=== PATIENT | female | born 1960 | race American Indian/Alaskan Native ===

== ENCOUNTER 2019-01-05 13:56 | Emergency (ER) | payer OTHER ==
--- NOTE | 2019-01-05 14:32 | Emergency Department Report ---
Blank Doc - Documentation Documentation: 58 y old female presents to ED cc of fall earlier today at day care [facility] [employer] accidently slipped and fell on her butt, no loc cc of slight r knee pain, ambulatory without any problems [facility] Eval
[2019-01-05] MEDS ORDERED: TORADOL IM ONE (16:41)
--- NOTE | 2019-01-05 16:48 | Emergency Department Report ---
ED Fall HPI - General Chief Complaint: Fall Stated Complaint: FELL AT WORK Time Seen by Provider: 01/05/19 14:19 Source: patient Mode of arrival: Ambulatory - History of Present Illness Initial Comments: 58-year-old -[place] female presents to the emergency room after a ground-level fall at work sustaining injury to her back and neck and buttocks. 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 Patient denies any loss of consciousness but states that she landed hard. Patient reports a past medical history of asthma fibroid removal and tubal ligation. MD Complaint: fall -: This afternoon Fall From: standing Fall Witnessed: yes, by bystander Place Fall Occurred: work Loss of Consciousness: none Prolonged Down Time?: no Symptoms Prior to Fall: none Location: neck, back, buttocks Severity: severe Severity scale (0 -10): 9 Quality: aching, other (stiff) Context: tripped/slipped Associated Symptoms: neck pain - Related Data Previous Rx's Medication Instructions Recorded Last Taken Type ALBUTEROL Inhaler (OR & NICU) 2 puff IH QID PRN #1 inhalation 06/09/15 Unknown Rx [ProAir HFA Inhaler] Azithromycin [Zithromax Z-BRANDY] 250 mg PO DAILY #6 tab 06/09/15 Unknown Rx predniSONE [Deltasone] 20 mg PO BID 5 Days tab 06/09/15 Unknown Rx Baclofen 20 mg PO TID PRN #21 tablet 01/05/19 Unknown Rx Naproxen [Naprosyn TAB] 500 mg PO BID #20 tablet 01/05/19 Unknown Rx Allergies Allergy/AdvReac Type Severity Reaction Status Date / Time No Known Allergies Allergy Unverified 06/08/15 22:17 ED Review of Systems ROS: Stated complaint: FELL AT WORK Other details as noted in HPI Constitutional: denies: chills, fever Eyes: denies: eye pain, eye discharge, vision change ENT: denies: ear pain, throat pain Respiratory: denies: cough, shortness of breath, wheezing Cardiovascular: denies: chest pain, palpitations Endocrine: no symptoms reported Gastrointestinal: denies: abdominal pain, nausea, diarrhea Genitourinary: denies: urgency, dysuria, discharge Musculoskeletal: back pain Skin: denies: rash, lesions Neurological: denies: headache, weakness, paresthesias Psychiatric: denies: anxiety, depression Hematological/Lymphatic: denies: easy bleeding, easy bruising ED Past Medical Hx - Past Medical History Previous Medical History?: Yes Hx Asthma: Yes - Surgical History Past Surgical History?: Yes Additional Surgical History: fibroid removed, tubal. - Social History Smoking Status: Never Smoker Substance Use Type: Alcohol - Medications Home Medications: Home Medications Medication Instructions Recorded Confirmed Last Taken Type ALBUTEROL Inhaler (OR & NICU) 2 puff IH QID PRN #1 inhalation 06/09/15 Unknown Rx [ProAir HFA Inhaler] Azithromycin [Zithromax Z-BRANDY] 250 mg PO DAILY #6 tab 06/09/15 Unknown Rx predniSONE [Deltasone] 20 mg PO BID 5 Days tab 06/09/15 Unknown Rx Baclofen 20 mg PO TID PRN #21 tablet 01/05/19 Unknown Rx Naproxen [Naprosyn TAB] 500 mg PO BID #20 tablet 01/05/19 Unknown Rx ED Physical Exam - General Limitations: No Limitations General appearance: alert, in no apparent distress - Head Head exam: Present: atraumatic, normocephalic - Eye Eye exam: Present: PERRL, EOMI - ENT ENT exam: Present: mucous membranes moist - Neck Neck exam: Present: tenderness, full ROM. Absent: lymphadenopathy - Respiratory Respiratory exam: Present: normal lung sounds bilaterally. Absent: respiratory distress - Cardiovascular Cardiovascular Exam: Present: regular rate, normal rhythm. Absent: systolic murmur, diastolic murmur, rubs, gallop - GI/Abdominal GI/Abdominal exam: Present: soft. Absent: distended, tenderness - Expanded Lower Extremity Exam Left Hip exam: Present: full ROM, tenderness. Absent: swelling, abrasion Upper Leg exam: Present: full ROM, tenderness. Absent: swelling Knee exam: Present: normal inspection, full ROM. Absent: tenderness, swelling Ankle exam: Present: normal inspection Foot/Toe exam: Present: normal inspection Neuro vascular tendon exam: Present: no vascular compromise - Back Exam Back exam: Present: full ROM, tenderness, muscle spasm, paraspinal tenderness - Neurological Exam Neurological exam: Present: alert, oriented X3 - Psychiatric Psychiatric exam: Present: normal affect, normal mood - Skin Skin exam: Present: warm, dry, intact, normal color. Absent: rash ED Course Vital Signs 01/05/19 14:29 Temperature 98 F Pulse Rate 76 Respiratory 18 Rate Blood Pressure 136/95 O2 Sat by Pulse 99 Oximetry ED Medical Decision Making - Radiology Data Radiology results: report reviewed Patient: VENICE SHARPE MR#: [id number] 7 : 1960 Acct:[id number] Age/Sex: 58 / F ADM Date: 01/05/19 Loc: ED Attending Dr: Ordering Physician: IDALIA ESTRADA Date of Service: 01/05/19 Procedure(s): XR spine lumbosacral 2-3V Accession Number(s): [id number] cc: IDALIA ESTRADA Fluoro Time In Minutes: PROCEDURE: XR SPINE LUMBOSACRAL 2-3V HISTORY: falllow back pain FINDINGS: AP and lateral views of the lumbar spine were acquired as well as coned-down lateral view of L5-S1. No fracture is seen in the lumbar spine. The intervertebral disc space heights appear preserved. There is scoliosis convex right at L2-L3 of approximately 5 degrees. IMPRESSION: No fracture is seen in the lumbar spine This document is electronically signed by Chaz Jett MD., Jan 05 2019 06:20:31 PM ET Transcribed By: RYAN Dictated By: CHAZ JETT MD Electronically Authenticated By: CHAZ JETT MD Signed Date/Time: 01/05/191821 DD/ 12 TD/TT: 01/05/191712 Patient: VENICE SHARPE MR#: [id number] 7 : 1960 Acct:[id number] Age/Sex: 58 / F ADM Date: 01/05/19 Loc: ED Attending Dr: Ordering Physician: IDALIA ESTRADA Date of Service: 01/05/19 Procedure(s): XR spine cervical 2-3V Accession Number(s): [id number] cc: IDALIA ESTRADA Fluoro Time In Minutes: PROCEDURE: XR SPINE CERVICAL 2-3V HISTORY: fall neck pain FINDINGS: AP, lateral and open-mouth views of the cervical spine were acquired. No fracture is seen in the cervical spine. There is loss of intervertebral disc space height at C6- C7. There is anterior endplate remodeling at C5-C6 and C6-C7. The prevertebral soft tissues are within normal limits. There is loss of normal cervical lordosis which may be due to pain, muscle spasm or patient positioning for the examination. IMPRESSION: No fracture is seen in the cervical spine This document is electronically signed by Chaz Jett MD., Jan 05 2019 06:19:25 PM ET Transcribed By: RYAN Dictated By: CHAZ JETT MD Electronically Authenticated By: CHAZ JETT MD Signed Date/Time: 01/05/191821 DD/ 12 TD/TT: 01/05/191712 - Medical Decision Making 58-year-old female presents to the emergency room after a ground-level fall. X-rays of neck and lumbar sacral have been ordered. Toradol injection 30 mg IM has been ordered. Patient be reevaluated once x-rays are complete. Patient was discharged home on naproxen and baclofen. Follow-up with her primary care provider. Critical care attestation.: If time is entered above; I have spent that time in minutes in the direct care of this critically ill patient, excluding procedure time. ED Disposition Clinical Impression: Fall Qualifiers: Encounter type: initial encounter Qualified Code(s): W19.XXXA - Unspecified fall, initial encounter Lower back injury Qualifiers: Encounter type: initial encounter Qualified Code(s): S39.92XA - Unspecified injury of lower back, initial encounter Disposition: DC-01 TO HOME OR SELFCARE Is pt being admited?: No Does the pt Need Aspirin: No Condition: Stable Instructions: Fall Prevention for Older Adults (ED), Arthralgia (ED), Acute Low Back Pain (ED) Additional Instructions: Take pain medication as needed muscle relaxant as needed. Please follow up with her primary care provider if his symptoms persist or gets worse. All x-rays were negative for any acute findings. Prescriptions: Baclofen 20 mg PO TID PRN #21 tablet PRN Reason: Pain , Severe (7-10) Naproxen [Naprosyn TAB] 500 mg PO BID #20 tablet Referrals: YOSVANY CARRION MD [Primary Care Provider] - 3-5 Days Forms: Work/School Release Form(ED)
--- NOTE | 2019-01-05 18:22 | XRay Report ---
PROCEDURE: XR SPINE CERVICAL 2-3V HISTORY: fall neck pain FINDINGS: AP, lateral and open-mouth views of the cervical spine were acquired. No fracture is seen i n the cervical spine. There is loss of intervertebral disc space height at C6-C7. There is anterior e ndplate remodeling at C5-C6 and C6-C7. The prevertebral soft tissues are within normal limits. There is loss of normal cervical lordosis which may be due to pain, muscle spasm or patient positioning for the examination. IMPRESSION: No fracture is seen in the cervical spine This document is electronically signed by Chaz Jett MD., Jan 05 2019 06:19:25 PM ET
--- NOTE | 2019-01-05 18:22 | XRay Report ---
PROCEDURE: XR SPINE LUMBOSACRAL 2-3V HISTORY: falllow back pain FINDINGS: AP and lateral views of the lumbar spine were acquired as well as coned-down lateral view o f L5-S1. No fracture is seen in the lumbar spine. The intervertebral disc space heights appear preserved. Ther e is scoliosis convex right at L2-L3 of approximately 5 degrees. IMPRESSION: No fracture is seen in the lumbar spine This document is electronically signed by Chaz Jett MD., Jan 05 2019 06:20:31 PM ET
[2019-01-05 18:46] VITALS: BP 161/76
== END 2019-01-05 18:46 | disposition home or self-care (01) ==
LOC: ED 13:56
DX: S39.92XA Unspecified injury of lower back, initial encounter (principal); M54.2 Cervicalgia; J45.909 Unspecified asthma, uncomplicated; W01.0XXA Fall on same level from slipping, tripping and stumbling without subsequent striking against object, initial encounter; Y93.89 Activity, other specified; Y92.89 Other specified places as the place of occurrence of the external cause; Y99.0 Civilian activity done for income or pay
CPT/HCPCS: 72040; 72100; 96372; 99283; J1885